=== PATIENT | female | born 1980 | race Caucasian/White ===

== ENCOUNTER → 2021-04-22 | Day surgery (SDC) | payer OTHER ==
[~2021-04-22] VITALS: Ht 170.2 cm; Wt 77.1 kg
[~2021-04-22] MED LIST: KETOROLAC TROME10 MG PO; XULANE PATCH1 EACH TOP; ZOLOFT50 MG PO
[2021-04-22 07:13] LABS: HCT 37.1 % (37.0-47.0); HGB 12.2 g/dl (12.5-16.0); MCHC 32.9 g/dL (32.0-36.0); MCV 91.4 fL (78.0-100.0); MPV 10.1 fL (6.0-9.5); RBC 4.06 M/uL (4.20-5.40); RDW 12.5 % (11.5-14.0); WBC 8.1 K/uL (4.0-10.5)
== END | disposition home or self-care (01) ==
LOC: FAS 06:29
PROVIDERS: Specialist
DX: D06.0 Carcinoma in situ of endocervix (principal); R87.810 Cervical high risk human papillomavirus (HPV) DNA test positive; Z80.3 Family history of malignant neoplasm of breast
CPT/HCPCS: 36415; 84702; J0690; J1885; J2250; J2405; J2704; J3010; J7120